=== PATIENT | male | born 1955 | race Caucasian/White ===

== ENCOUNTER → 2022-09-24 | Outpatient (CLI) | payer BC ==
[~2022-09-24] MED LIST: FELODIPINE ER5 MG PO; LIDOCAINE HCL 1% LOCAL INJ 20 ML VIAL ONE; LIPITOR10 MG PO; NEXIUM40 MG PO; ZESTRIL10 MG PO
== END ==
LOC: US 09-17 10:38
PROVIDERS: ATTEND Family Medicine
DX: R91.1 Solitary pulmonary nodule (principal)
CPT/HCPCS: 10005; 88300; J2001 ×2; 88173

== ENCOUNTER → 2024-02-03 | Outpatient (REF) | payer MEDICARE, BC ==
[~2024-02-03] MED LIST changes: -LIDOCAINE HCL 1% LOCAL INJ 20 ML VIAL ONE
== END ==
LOC: US 07:59
PROVIDERS: ATTEND Otolaryngology
DX: E04.2 Nontoxic multinodular goiter (principal)
CPT/HCPCS: 10005; 88112; 88172; 88173; 88305